=== PATIENT | female | born 1980 | race Caucasian/White ===

== ENCOUNTER → 2019-12-16 | Outpatient (CLI) | payer OTHER ==
[~2019-12-16] MED LIST: CIPR-249 PO; KEFL500C17 PO; TRAM50TA2 PO; ZOFR4TAB16 PO
[2019-12-16 11:53] LABS: BASO % 0.4 % (0.0-1.0); EOS # 0.2 10^3/uL (0.0-0.5); EOS % 3.9 % (0.0-3.0); HEMATOCRIT 42.5 % (36.0-47.0); HEMOGLOBIN 13.5 g/dl (12.0-15.5); LYMPH # 2.3 10^3/uL (1.5-5.0); LYMPH % 49.3 % (24.0-44.0); MEAN CORPUSCULAR HEMOGLOBIN 26.5 pg (27.0-33.0); MEAN CORPUSCULAR HGB CONC 31.8 g/dl (32.0-36.5); MEAN CORPUSCULAR VOLUME 83.3 fl (80.0-96.0); MONO # 0.3 10^3/uL (0.0-0.8); MONO % 5.6 % (0.0-5.0); NEUTROPHILS # 1.9 10^3/uL (1.5-8.5); NEUTROPHILS % 40.6 % (36.0-66.0); PLATELET COUNT, AUTOMATED 141 10^3/uL (150-450); WHITE BLOOD COUNT 4.7 10^3/uL (4.0-10.0)
[2019-12-16 13:14] LABS: ALT/SGPT 20 U/L (12-78); BILIRUBIN,TOTAL 0.4 MG/DL (0.2-1.0); BLOOD UREA NITROGEN 10 MG/DL (7-18); CALCIUM LEVEL 8.7 MG/DL (8.5-10.1); CARBON DIOXIDE LEVEL 26 MEQ/L (21-32); CHLORIDE LEVEL 106 MEQ/L (98-107); CREATININE FOR GFR 0.86 MG/DL (0.55-1.30); FREE T4 1.04 NG/DL (0.76-1.46); GLOMERULAR FILTRATION RATE > 60.0 (>58); GLUCOSE, FASTING 79 MG/DL (70-100); POTASSIUM SERUM 3.7 MEQ/L (3.5-5.1); SODIUM LEVEL 138 MEQ/L (136-145); THYROID STIMULATING HORMONE 0.232 uIU/ML (0.358-3.740); TOTAL PROTEIN 7.4 GM/DL (6.4-8.2)
== END ==
LOC: M LAB 11:04
PROVIDERS: ATTEND Family Medicine
DX: M79.7 Fibromyalgia (principal); D69.6 Thrombocytopenia, unspecified; R00.0 Tachycardia, unspecified; F32.9 Major depressive disorder, single episode, unspecified

== ENCOUNTER 2019-12-19 17:07 | Emergency (ER) | payer OTHER ==
[~2019-12-19] VITALS: Ht 175.3 cm; Wt 85.2 kg
[2019-12-19] MEDS ORDERED: ONDANSETRON 4MG/2ML VIAL IV ONE (18:30)
[2019-12-19] MEDS ORDERED: NS 1,000 ML IV ONE (18:30)
[2019-12-19 18:57] LABS: BASO % 0.2 % (0.0-1.0); EOS # 0.2 10^3/uL (0.0-0.5); EOS % 3.8 % (0.0-3.0); HEMATOCRIT 40.3 % (36.0-47.0); HEMOGLOBIN 12.8 g/dl (12.0-15.5); LYMPH # 2.3 10^3/uL (1.5-5.0); LYMPH % 45.6 % (24.0-44.0); MEAN CORPUSCULAR HEMOGLOBIN 26.2 pg (27.0-33.0); MEAN CORPUSCULAR HGB CONC 31.8 g/dl (32.0-36.5); MEAN CORPUSCULAR VOLUME 82.4 fl (80.0-96.0); MONO # 0.3 10^3/uL (0.0-0.8); MONO % 6.7 % (0.0-5.0); NEUTROPHILS # 2.2 10^3/uL (1.5-8.5); NEUTROPHILS % 43.5 % (36.0-66.0); PLATELET COUNT, AUTOMATED 150 10^3/uL (150-450); RED BLOOD COUNT 4.89 10^6/uL (4.00-5.40)
[2019-12-19 19:13] LABS: INR 1.04; PROTHROMBIN TIME 13.9 SECONDS (11.8-14.0)
[2019-12-19 19:21] LABS: ALBUMIN 3.7 GM/DL (3.2-5.2); ALT/SGPT 22 U/L (12-78); BILIRUBIN,DIRECT < 0.1 MG/DL (0.0-0.2); BILIRUBIN,TOTAL 0.3 MG/DL (0.2-1.0); BLOOD UREA NITROGEN 10 MG/DL (7-18); CALCIUM LEVEL 8.7 MG/DL (8.5-10.1); CARBON DIOXIDE LEVEL 27 MEQ/L (21-32); CHLORIDE LEVEL 109 MEQ/L (98-107); CREATININE FOR GFR 1.01 MG/DL (0.55-1.30); GLOMERULAR FILTRATION RATE > 60.0 (>58); GLUCOSE, FASTING 91 MG/DL (70-100); LIPASE 397 U/L (73-393); POTASSIUM SERUM 4.2 MEQ/L (3.5-5.1); SODIUM LEVEL 142 MEQ/L (136-145); TOTAL PROTEIN 7.1 GM/DL (6.4-8.2)
[2019-12-19] MEDS ORDERED: traMADol 50 MG TAB PO ONE (20:00)
--- NOTE | 2019-12-19 20:02 | REPVR ---
PROCEDURE INFORMATION: Exam: CT Abdomen And Pelvis Without Contrast Exam date and time: 12/19/2019 6:21 PM Age: 39 years old Clinical indication: Other: L flank pain TECHNIQUE: Imaging protocol: Computed tomography of the abdomen and pelvis without contrast. Radiation optimization: All CT scans at this facility use at least one of these dose optimization techniques: automated exposure control; mA and/or kV adjustment per patient size (includes targeted exams where dose is matched to clinical indication); or iterative reconstruction. COMPARISON: No relevant prior studies available. FINDINGS: Lungs: Bibasilar ground-glass opacities may represent atelectasis. Clinical correlation to exclude pneumonitis suggested. Liver: Simple cyst inferior tip right lobe of the liver measures 1.7 cm. Liver otherwise unremarkable. Gallbladder and bile ducts: There has been a cholecystectomy. Pancreas: Normal. No ductal dilation. Spleen: Normal. No splenomegaly. Adrenals: Normal. No mass. 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 Kidneys otherwise unremarkable. Stomach and bowel: Mural stratification demonstrated in the proximal left colon with minimal pericolonic inflammation. Findings may represent segmental colitis. Mural stratification in the right and transverse colon without pericolonic inflammation likely related to nondistention or changes related to chronic colitis. Appendix: No evidence of appendicitis. Intraperitoneal space: Unremarkable. No free air. No significant fluid collection. Vasculature: Unremarkable. No abdominal aortic aneurysm. Lymph nodes: Unremarkable. No enlarged lymph nodes. Bladder: Unremarkable as visualized. Reproductive: There has been a hysterectomy. Bones/joints: Moderate central spinal stenosis L4-L5. Soft tissues: Unremarkable. IMPRESSION: 1. Bibasilar ground-glass opacities may represent atelectasis. Clinical correlation to exclude pneumonitis suggested. 2. There has been a cholecystectomy. 3. There has been a hysterectomy. 4. Mural stratification demonstrated in the proximal left colon with minimal pericolonic inflammation. Findings may represent segmental colitis. 5. Mural stratification in the right and transverse colon without pericolonic inflammation likely related to nondistention or changes related to chronic colitis. Electronically signed by: Raphael Ruiz On 12/19/2019 20:02:12 PM
[2019-12-19] MEDS ORDERED: CIPR-249 PO (20:15)
[2019-12-19] MEDS ORDERED: TRAM50TA2 PO (20:15)
[2019-12-19] MEDS ORDERED: ZOFR4TAB16 PO (20:15)
[2019-12-19] MEDS ORDERED: CIPROFLOXACIN 500MG TABLET PO ONE (20:30)
[2019-12-19 20:57] VITALS: BP 147/83
[2019-12-20] MEDS ORDERED: KEFL500C17 PO (08:55)
--- NOTE | 2019-12-23 09:21 | ED PDOC ---
Post-Departure Follow-Up radiology report faxed to Jb Moran Sarah MD Dec 23, 2019 09:21
== END 2019-12-19 20:58 | disposition home or self-care (01) ==
LOC: M ED 17:07
DX: N10 Acute pyelonephritis (principal); K52.9 Noninfective gastroenteritis and colitis, unspecified; Z88.6 Allergy status to analgesic agent; R91.8 Other nonspecific abnormal finding of lung field; Z79.899 Other long term (current) drug therapy
CPT/HCPCS: 74176; 80047; 80048; 80076; 81001; 83690; 85025; 85610; 86850; 86870; 86900; 86901; 87086; 96361; 96374; 99284; J2405

== ENCOUNTER → 2020-01-05 | Outpatient (REF) | payer OTHER ==
[2020-01-05 14:29] LABS: APPEARANCE, URINE CLEAR (CLEAR); BACTERIA, URINE AUTO NEGATIVE (NEGATIVE); BILIRUBIN, URINE AUTO NEGATIVE (NEGATIVE); BLOOD, URINE BLOOD NEGATIVE (NEGATIVE); COLOR, URINE YELLOW (YELLOW); GLUCOSE, URINE (UA) AUTO NEGATIVE (NEGATIVE); KETONE, URINE AUTO NEGATIVE (NEGATIVE); LEUKOCYTE ESTERASE, URINE AUTO 2+ (NEGATIVE); NITRITE, URINE AUTO NEGATIVE (NEGATIVE); PROTEIN, URINE AUTO NEGATIVE (NEGATIVE); RBC, URINE AUTO 0 /HPF (0-3); SPECIFIC GRAVITY URINE AUTO 1.005 (1.002-1.035); SQUAMOUS EPITHELIAL CELL UR AU 0 /HPF (0-6); UROBILINOGEN, URINE AUTO 0.2 mg/dL (0.0-2.0); WBC, URINE AUTO 1 /HPF (0-3)
== END ==
LOC: M SMT 13:06
PROVIDERS: ATTEND Nurse Practitioner Family
DX: R30.0 Dysuria (principal); R31.0 Gross hematuria